=== PATIENT | female | born 1985 | race Caucasian/White ===

== ENCOUNTER 2016-06-24 13:18 | Emergency (ER) | payer OTHER ==
--- NOTE | 2016-06-24 16:09 | ED ORDER SUMMARY ---
..... Patient: KAYLYNN MUNIZ OrderSheet [facility] VisitID: [id number] [place] [address] 30y, F Registration Date/Time: 06/24/2016 ORDER SHEET Weight: 70.3 kg (stated) Allergies: [place] GENERAL ORDERS: CBC w Diff Urgent (14:06/24/2016 HBivens A.R.N.P.) (Ack 14:22 OHernandez) (14:59 OHernandez) BMP Urgent (14:06/24/2016 HBivens A.R.N.P.) (Ack 14:22 OHernandez) (14:59 OHernandez) Serum Qualitative Urgent (14:06/24/2016 HBivens A.R.N.P.) (Ack 14:22 OHernandez) (14:59 OHernandez) EKG - ER Stat (14:06/24/2016 HBivens A.R.N.P.) (Ack 14:21 OHernandez) (14:26 TBergley) Vitals - Orthostatic (14:06/24/2016 HBivens A.R.N.P.) (14:26 TBergley) MEDICATION ORDERS: Meclizine PO 50 mg (NOW) (14:06/24/2016 HBivens A.R.N.P.) (14:30 LWhalen R.N.) IV FLUIDS: IV NS : initial bolus 1000 mL (1000 mL/hr), then none - for X1 (NOW) (14:03 06/24/2016 HBivens A.R.N.P.) (14:29 LWhalen R.N.) Zofran IV 4 mg (NOW) (14:06/24/2016 HBivens A.R.N.P.) (14:29 LWhalen R.N.) IV Saline Lock (14:06/24/2016 HBivens A.R.N.P.) (14:30 LWhalen R.N.) ORDER SHEET NOTES: [Electronically signed by Edwin Montero R.N. (17:27 06/24/2016)] [Electronically signed by Yvonne Osborne (19:19 06/24/2016)] [Electronically locked/signed by Edwin Montero R.N. (17:27 06/24/2016)]
--- NOTE | 2016-06-24 16:09 | ED NURSING NOTES ---
Clinical Report - Nurses [facility] [address] [place] [address] 06/24/2016 13:20 Patient: KAYLYNN MUNIZ TRIAGE Triage time 13:22 Jun 24 2016. Acuity: LEVEL 3. Chief Complaint: DIZZINESS and NEAR-SYNCOPE. GUILHERME COMA SCORE: [place] Coma Scale: 15- eyes open spontaneously (4); best verbal response- oriented x 4 (5); best motor response- obeys commands (6). --13:30 Edwin Montero R.N. 13:22 06/24/16. BP: 97/55. HR: 88. RR: 18. O2 saturation: 100%. Temp: 98.2 F. Pain level now 9/10. --13:30 Edwin Montero R.N. Weight: 70.3 kg stated. Height/Length: 70 inches Per Patient. BMI: 22.2. --13:29 Edwin Montero R.N. Medications LaMICtal Oral. --13:25 Edwin Montero R.N. Xanax Oral. --13:25 Edwin Montero R.N. Abilify Oral. --13:25 Edwin Montero R.N. Allergies [place]. --13:25 Edwin Montero R.N. History Arrived by EMS, and from home. Historian: patient. Primary physician (Lamine Robin). This started just prior to arrival. ( Has had chest and abdominal pains for a month but states isn't really sick with any specific cold symptoms and today felt so dizzy she couldn't walk or get up out of bed. Pain generalized all over body.). She has had moderate nausea, trouble walking, a mild headache, vomiting and weakness. No ear pain, fainting episodes or tinnitus. PAST MEDICAL HX: Immunizations: up-to-date. Last normal menstrual period- 1 days ago. 2. Para 0. Abortions 2. ( Has bipolar is being followed by MD.). SOCIAL HX: Smoker- current status unknown (quit smoking yesterday). No alcohol use or drug use. No infectious disease exposure. SELF HARM ASSESSMENT: A self harm assessment was performed. The patient answered "yes" to the question "Have you recently felt down, depressed, or hopeless?" and "no" to the question "Do you have thoughts of harming or killing yourself?". FALL RISK ASSESSMENT: Fall risk assessment completed. No fall risk identified. NUTRITIONAL RISK ASSESSMENT: The nutritional risk assessment revealed no deficiencies. FUNCTIONAL ASSESSMENT: Functional assessment: no impairments noted. LEARNING NEEDS ASSESSMENT: The learning needs assessment revealed no barriers. ABUSE ASSESSMENT: Abuse assessment: (yes) The patient was asked "Do you feel safe in your home?". SKIN INTEGRITY ASSESSMENT: Skin integrity risk assessment completed. No skin integrity risk identified. --13:30 Edwin Montero R.N. PROBLEMS: Anxiety Reaction. --13:26 Edwin Montero R.N. ADDITIONAL SURGERIES: no known surgeries. Interventions ID and allergy band on patient. --13:30 Edwin Montero R.N. PHYSICAL ASSESSMENT To room via stretcher. GENERAL / NEURO / PSYCH: Oriented X 4. Appears in no acute distress. Alert. Speech within normal limits. HEENT: No facial asymmetry noted. Pupils equal, round and reactive to light. RESPIRATORY: Breath sounds within normal limits. Respirations not labored. CVS: Normal sinus rhythm noted. Capillary refill less than 2 seconds. GI / : Abdominal tenderness. ( Last BM this am and normal). SKIN: Skin is warm and dry. --13:30 Edwin Montero R.N. NURSING PROGRESS NOTES The initial plan of care for this patient includes an assessment with efforts to address the patient's anxiety; patient positioning and appropriate ambient lighting. Pulse oximeter and NIBP monitor placed on patient. Patient gowned. Head of bed elevated (45). Reassurance given. Call light placed in reach. Side rails up x 2. Bed placed in lowest position. Brakes of bed on. --13:31 Edwin Montero R.N. 14:04 06/24/2016 Site #1 started prior to arrival by EMS via IV in the left antecubital space with an 20g angiocath. Saline lock flushed with 10 mL saline. --14: Edwin Montero R.N. 14:06/24/16. EKG time: (1422 PM). EKG was performed by a tech and shown to the ED physician. --14: YajairaCarlos avendanoler 14:06/24/2016 Started bag #1 1000 mL IV Fluids IV NS (Saline); at 1000 mL/hr over 1 hour(s) via site #1 via dial-a-flow. Allergies verified and confirmed 5 rights. IV patency established. IV site checked: no pain, redness, or swelling. IV flushed thoroughly pre- and post-medication administration. --14: Edwin Montero R.N. 14:06/24/2016 Zofran (Ondansetron HCl) IVP 4 mg given over 2 minute(s) via site #1. Allergies verified and confirmed 5 rights. IV patency established. IV site checked: no pain, redness, or swelling. IV flushed thoroughly pre- and post-medication administration. --14: Edwin Montero R.N. 14:06/24/2016 Meclizine PO Tablets 50 mg given. Allergies verified, confirmed 5 rights and sedative warning given to the patient. --14: Edwin Montero R.N. 16:06/24/16. BP: 106/74. HR: 108. RR: 18. O2 saturation: 99%. Temp: 98.3 F. Pain level now 0/10. --16: Edwin Montero R.N. DISPOSITION / DISCHARGE Departure time: 16:Jun 24 2016. Condition at departure: improved. No learning barriers present. Discharge instructions provided and reviewed with the patient. Reviewed warnings. Reviewed medication(s). Treatments reviewed. Reviewed referrals. Patient verbalized understanding. Written instructions provided in [place]. The patient was discharged home and accompanied by head mva reactor operator. She left the Emergency Department ambulatory and via private vehicle. Family member driving. --16: Edwin Montero R.N. 16:20 06/24/16. BP: 106/74. HR: 108. RR: 18. O2 saturation: 99%. Temp: 98.3 F. Pain level now 0/10. 14:29 06/24/16. BP: 96/47 taken while standing. HR: 100. O2 saturation: 100%. 14:28 06/24/16. BP: 110/75 taken while sitting. HR: 80. O2 saturation: 100%. 14:27 06/24/16. BP: 101/59 taken while lying. HR: 80. O2 saturation: 100%. --16:21 Edwin Montero R.N. 17:26 06/24/2016 IV Fluids IV NS Discontinued: bag #1 infused. Total amount infused: 1000 mL. IV patency established. IV site checked: no pain, redness, or swelling. IV flushed thoroughly. --17:26 Edwin Montero R.N. Locked/Released at 06/24/2016 17:27 by Edwin Montero R.N.
--- NOTE | 2016-06-24 16:09 | ED CLINICAL REPORT ---
Clinical Report - Physicians/Mid Levels [facility] [address] [place] [address] 06/24/2016 13:20 Patient: KAYLYNN MUNIZ Time Seen: 13:55; initial patient contact, initial documentation, patient care assumed. Arrived- By ambulance. Historian- patient. HISTORY OF PRESENT ILLNESS Chief Complaint: DIZZINESS and NEAR-SYNCOPE. Severity described as severe at its maximum. When seen in the E.D., severity described as moderate. Modifying factors- worsened by turning head and changing position. Relieved by nothing. This started just prior to arrival and is still present. Described as sense of falling and feeling off balance, light-headed and weak all over. The patient has had nausea. She has had vomiting (x3 episodes after the dizziness started). No hearing loss, tinnitus or ear pain. Similar symptoms previously: None. Recent medical care: Not recently seen/assessed. REVIEW OF SYSTEMS The patient has had a moderate global headache. She has had weakness. No fainting episodes, head injury, chest pain, fever or difficulty breathing. No abdominal pain or diarrhea. All systems otherwise negative, except as recorded above. PAST HISTORY See nurses notes. ( PROBLEMS: Anxiety Reaction. --13:26 Edwin Montero R.N. ADDITIONAL SURGERIES: no known surgeries.). SOCIAL HISTORY Smoker - current status unknown (wearing patch, says she quit x2 days ago). No alcohol use or drug use. No recent travel. Is a local resident. FAMILY HISTORY Negative. ADDITIONAL NOTES The nursing notes have been reviewed with agreement regarding the chief complaint, HPI, ROS, PMH and patient medications and allergies. PHYSICAL EXAM Vital Signs: 06/24/2016 13:22 BP: 97/55. HR: 88. RR: 18. O2 saturation: 100%. Temp: 98.2 F. Have been reviewed as abnormal and appear to be correct. Hypotensive. Heart rate normal. Respiratory rate normal. Temperature normal. Oxygen saturation normal. Appearance: Alert. No acute distress. Eyes: Pupils equal, round and reactive to light. No nystagmus. Extraocular movements normal. ENT: Normal ENT inspection. TM's normal. Moist mucous membranes. Pharynx normal. Neck: Normal inspection. Neck supple. CVS: Normal heart rate and rhythm. Heart sounds normal. Pulses normal. Respiratory: No respiratory distress. Breath sounds normal. Abdomen: Soft and nontender. No organomegaly. Back: Normal inspection. Skin: Skin warm and dry. Normal skin color. No rash. Normal skin turgor. Extremities: Extremities exhibit normal ROM. No lower extremity edema. Neuro: Alert. Oriented X 3. Mood/affect normal. Speech normal. Cranial nerves normal (as tested). No cerebellar findings. No motor deficit. No sensory deficit. LABS, X-RAYS, AND EKG EKG: EKG time: (1422). No acute process. No acute ischemia. Normal EKG. Rate: 89. RBBB. Non-specific ST segment / T wave abnormalities in lead I, aVL and V1. Normal EKG. interpreted by Dr. Rodriguez and reviewed by me. The EKG appears to be a good tracing. Laboratory Tests: Serum Qualitative: (YIN: 06/24/2016 14:50) ( [facility] 06/24/2016 15:23) Final results Test Result Flag Units (Reference) , SERUM NEGATIVE CBC w Diff: (YIN: 06/24/2016 14:50) ( [facility] [place] 06/24/2016 15:06) Final results Test Result Flag Units (Reference) WHITE BLOOD COUNT 16.6 H K/uL (4.5-11.5) RED BLOOD COUNT 4.09 M/uL (4.00-5.20) HEMOGLOBIN 12.5 gm/dL (12.0-16.0) HEMATOCRIT 37.3 % (36.0-46.0) MEAN CELL VOLUME 91 fL (80-100) MEAN CORPUSCULAR HGB 31 pg (26-34) MEAN CORPUSCULAR HGB CONC 33 g/dL (31-37) RED CELL DISTRIBUTION WIDTH 12.3 % (11.6-14.8) PLATELET COUNT 225 K/uL (150-400) NEUTROPHIL % 93.0 H % (50-75) LYMPH % 2.5 L % (25-40) MONO % 4.4 % (3-14) EOSINOPHIL % 0 % (0-4) BASOPHIL % 0.1 % (0-2) BMP: (YIN: 06/24/2016 14:50) ( [facility] 06/24/2016 15:18) Final results Test Result Flag Units (Reference) GLUCOSE 124 H mg/dL (70-110) BUN 14 mg/dL (7-18) CREATININE 0.7 mg/dL (0.6-1.3) Estimated GFR >60 mL/min Estimated GFR- >60 mL/min Note: Persistent reduction over 3 months in eGFR<60 mL/min/1.73 m2 defines CKD. Patients with eGFR values>=60 mL/min/1.73 m2 may also have CKD if evidence ofpersistent proteinuria. Additional information may be foundat www.[email or web address].org. SODIUM 142 mmol/L (136-145) POTASSIUM 3.8 mmol/L (3.5-5.1) CHLORIDE 108 H mmol/L (98-107) CARBON DIOXIDE 26 mmol/L (21-32) CALCIUM 8.3 L mg/dL (8.5-10.1) . PROGRESS AND PROCEDURES Course of Care: 13:57 06/24/16. pt has mercedes for narcs of oxycodone and xanax, last rx 06/20 #60 oxy, gets these meds routinely approx exery month, see report for full details 15:56 06/24/16. just now finding out from nurse that pt had pos tilt on orthostatics by heart rate, and vs were checked after the 1l of ivf 1600. pt stated she felt better, said dizziness and nausea were basically gone. Patient counseled in person regarding the patient's stable condition, test results and diagnosis. 1600. Differential Diagnosis: I considered labyrinthitis, Meniere's disease, drug-related etiology, benign positional vertigo, near-syncope and anxiety as a possible cause of dizziness in this patient. This is a partial list of diagnoses considered. (hypoglycemia, aom, aoe). Above considerations are based on history, physical exam, laboratory data and EKG. Differential diagnosis was discussed with patient. Disposition: Discharged home in good and improved condition (16:09). Condition: good and stable. CLINICAL IMPRESSION Acute dizziness INSTRUCTIONS Warnings: GENERAL WARNINGS: Return or contact your physician immediately if your condition worsens or changes unexpectedly, if not improving as expected, or if other problems arise. SPECIFICALLY, return if you develop chest pain, neck pain, jaw pain, shoulder pain, arm pain, back pain, fluttering sensation in your chest, lightheadedness, fainting, numbness, weakness or extreme fatigue. Prescription Medications: Zofran 4 mg: Take 1 orally every six hours as needed for nausea/vomiting. Dispense ten (10). No refills. Substitution is permissible. Meclizine 25 mg: Take 1 tablet orally every 8 hours as needed for dizziness. Dispense thirty (30). No refills. Follow-up: Follow up with your doctor in about two days even if well. Call for an appointment. Summary of care provided to patient. Understanding of the discharge instructions verbalized by patient. (Electronically signed by Yvonne Osborne A.R.N.P. 06/24/2016 19:19)
--- NOTE | 2016-06-24 16:09 | ED NURSING NOTES ---
Clinical Report - Nurses [facility] [address] [place] [address] 06/24/2016 13:20 Patient: KAYLYNN MUNIZ TRIAGE Triage time 13:22 Jun 24 2016. Acuity: LEVEL 3. Chief Complaint: DIZZINESS and NEAR-SYNCOPE. GUILHERME COMA SCORE: [place] Coma Scale: 15- eyes open spontaneously (4); best verbal response- oriented x 4 (5); best motor response- obeys commands (6). --13:30 Edwin Montero R.N. 13:22 06/24/16. BP: 97/55. HR: 88. RR: 18. O2 saturation: 100%. Temp: 98.2 F. Pain level now 9/10. --13:30 Edwin Montero R.N. Weight: 70.3 kg stated. Height/Length: 70 inches Per Patient. BMI: 22.2. --13:29 Edwin Montero R.N. Medications LaMICtal Oral. --13:25 Edwin Montero R.N. Xanax Oral. --13:25 Edwin Montero R.N. Abilify Oral. --13:25 Edwin Montero R.N. Allergies [place]. --13:25 Edwin Montero R.N. History Arrived by EMS, and from home. Historian: patient. Primary physician (Lamine Robin). This started just prior to arrival. ( Has had chest and abdominal pains for a month but states isn't really sick with any specific cold symptoms and today felt so dizzy she couldn't walk or get up out of bed. Pain generalized all over body.). She has had moderate nausea, trouble walking, a mild headache, vomiting and weakness. No ear pain, fainting episodes or tinnitus. PAST MEDICAL HX: Immunizations: up-to-date. Last normal menstrual period- 1 days ago. 2. Para 0. Abortions 2. ( Has bipolar is being followed by MD.). SOCIAL HX: Smoker- current status unknown (quit smoking yesterday). No alcohol use or drug use. No infectious disease exposure. SELF HARM ASSESSMENT: A self harm assessment was performed. The patient answered "yes" to the question "Have you recently felt down, depressed, or hopeless?" and "no" to the question "Do you have thoughts of harming or killing yourself?". FALL RISK ASSESSMENT: Fall risk assessment completed. No fall risk identified. NUTRITIONAL RISK ASSESSMENT: The nutritional risk assessment revealed no deficiencies. FUNCTIONAL ASSESSMENT: Functional assessment: no impairments noted. LEARNING NEEDS ASSESSMENT: The learning needs assessment revealed no barriers. ABUSE ASSESSMENT: Abuse assessment: (yes) The patient was asked "Do you feel safe in your home?". SKIN INTEGRITY ASSESSMENT: Skin integrity risk assessment completed. No skin integrity risk identified. --13:30 Edwin Montero R.N. PROBLEMS: Anxiety Reaction. --13:26 Edwin Montero R.N. ADDITIONAL SURGERIES: no known surgeries. Interventions ID and allergy band on patient. --13:30 Edwin Montero R.N. PHYSICAL ASSESSMENT To room via stretcher. GENERAL / NEURO / PSYCH: Oriented X 4. Appears in no acute distress. Alert. Speech within normal limits. HEENT: No facial asymmetry noted. Pupils equal, round and reactive to light. RESPIRATORY: Breath sounds within normal limits. Respirations not labored. CVS: Normal sinus rhythm noted. Capillary refill less than 2 seconds. GI / : Abdominal tenderness. ( Last BM this am and normal). SKIN: Skin is warm and dry. --13:30 Edwin Montero R.N. NURSING PROGRESS NOTES The initial plan of care for this patient includes an assessment with efforts to address the patient's anxiety; patient positioning and appropriate ambient lighting. Pulse oximeter and NIBP monitor placed on patient. Patient gowned. Head of bed elevated (45). Reassurance given. Call light placed in reach. Side rails up x 2. Bed placed in lowest position. Brakes of bed on. --13:31 Edwin Montero R.N. 14:04 06/24/2016 Site #1 started prior to arrival by EMS via IV in the left antecubital space with an 20g angiocath. Saline lock flushed with 10 mL saline. --14: Edwin Montero R.N. 14:06/24/16. EKG time: (1422 PM). EKG was performed by a tech and shown to the ED physician. --14: YajairaCarlos avendanoler 14:06/24/2016 Started bag #1 1000 mL IV Fluids IV NS (Saline); at 1000 mL/hr over 1 hour(s) via site #1 via dial-a-flow. Allergies verified and confirmed 5 rights. IV patency established. IV site checked: no pain, redness, or swelling. IV flushed thoroughly pre- and post-medication administration. --14: Edwin Montero R.N. 14:06/24/2016 Zofran (Ondansetron HCl) IVP 4 mg given over 2 minute(s) via site #1. Allergies verified and confirmed 5 rights. IV patency established. IV site checked: no pain, redness, or swelling. IV flushed thoroughly pre- and post-medication administration. --14: Edwin Montero R.N. 14:06/24/2016 Meclizine PO Tablets 50 mg given. Allergies verified, confirmed 5 rights and sedative warning given to the patient. --14: Edwin Montero R.N. 16:06/24/16. BP: 106/74. HR: 108. RR: 18. O2 saturation: 99%. Temp: 98.3 F. Pain level now 0/10. --16: Edwin Montero R.N. DISPOSITION / DISCHARGE Departure time: 16:Jun 24 2016. Condition at departure: improved. No learning barriers present. Discharge instructions provided and reviewed with the patient. Reviewed warnings. Reviewed medication(s). Treatments reviewed. Reviewed referrals. Patient verbalized understanding. Written instructions provided in [place]. The patient was discharged home and accompanied by equipment cleaner and tester. She left the Emergency Department ambulatory and via private vehicle. Family member driving. --16: Edwin Montero R.N. 16:20 06/24/16. BP: 106/74. HR: 108. RR: 18. O2 saturation: 99%. Temp: 98.3 F. Pain level now 0/10. 14:29 06/24/16. BP: 96/47 taken while standing. HR: 100. O2 saturation: 100%. 14:28 06/24/16. BP: 110/75 taken while sitting. HR: 80. O2 saturation: 100%. 14:27 06/24/16. BP: 101/59 taken while lying. HR: 80. O2 saturation: 100%. --16:21 Edwin Montero R.N. 17:26 06/24/2016 IV Fluids IV NS Discontinued: bag #1 infused. Total amount infused: 1000 mL. IV patency established. IV site checked: no pain, redness, or swelling. IV flushed thoroughly. --17:26 Edwin Montero R.N. Locked/Released at 06/24/2016 17:27 by Edwin Montero R.N.
--- NOTE | 2016-06-24 16:09 | ED ORDER SUMMARY ---
..... Patient: KAYLYNN MUNIZ OrderSheet [facility] VisitID: [id number] [place] [address] 30y, F Registration Date/Time: 06/24/2016 ORDER SHEET Weight: 70.3 kg (stated) Allergies: [place] GENERAL ORDERS: CBC w Diff Urgent (14:06/24/2016 HBivens A.R.N.P.) (Ack 14:22 OHernandez) (14:59 OHernandez) BMP Urgent (14:06/24/2016 HBivens A.R.N.P.) (Ack 14:22 OHernandez) (14:59 OHernandez) Serum Qualitative Urgent (14:06/24/2016 HBivens A.R.N.P.) (Ack 14:22 OHernandez) (14:59 OHernandez) EKG - ER Stat (14:06/24/2016 HBivens A.R.N.P.) (Ack 14:21 OHernandez) (14:26 TBergley) Vitals - Orthostatic (14:06/24/2016 HBivens A.R.N.P.) (14:26 TBergley) MEDICATION ORDERS: Meclizine PO 50 mg (NOW) (14:06/24/2016 HBivens A.R.N.P.) (14:30 LWhalen R.N.) IV FLUIDS: IV NS : initial bolus 1000 mL (1000 mL/hr), then none - for X1 (NOW) (14:03 06/24/2016 HBivens A.R.N.P.) (14:29 LWhalen R.N.) Zofran IV 4 mg (NOW) (14:06/24/2016 HBivens A.R.N.P.) (14:29 LWhalen R.N.) IV Saline Lock (14:06/24/2016 HBivens A.R.N.P.) (14:30 LWhalen R.N.) ORDER SHEET NOTES: [Electronically signed by Edwin Montero R.N. (17:27 06/24/2016)] [Electronically signed by Yvonne Osborne (19:19 06/24/2016)] [Electronically locked/signed by Edwin Montero R.N. (17:27 06/24/2016)]
--- NOTE | 2016-06-24 19:19 | ED MED RECONCILIATION SUMMARY ---
Patient: KAYLYNN MUNIZ Medication Reconciliation Report [facility] VisitID: [id number] [place] [address] 30y, F Registration Date/Time: 06/24/2016 Weight: 70.3 kg Height/Length: 70 in. BMI: 22.2 ALLERGIES: [place] The patient's Home Medications are listed below: THE FOLLOWING MEDICATIONS NEED TO BE RECONCILED: Abilify Oral LaMICtal Oral Xanax Oral The source(s) of the original Home Medication information: Not obtained. The following Medications were given to the patient in the Emergency Department: IV NS IV Fluids bolus 0, then 1000 mL/hr, administered: 06/24/2016 2:29:00 PM Zofran [IVP] IVP 4 mg, administered: 06/24/2016 2:29:00 PM Meclizine [PO] PO 50 mg, administered: 06/24/2016 2:30:00 PM The following Medications were prescribed to the patient: Zofran 4 mg: Take 1 orally every six hours as needed for nausea/vomiting. Dispense ten (10). No refills. Substitution is permissible. -- Yvonne Osborne A.R.N.P. Meclizine 25 mg: Take 1 tablet orally every 8 hours as needed for dizziness. Dispense thirty (30). No refills. -- Yvonne Osborne A.R.N.P.
--- NOTE | 2016-06-24 19:19 | ED MED RECONCILIATION SUMMARY ---
Patient: KAYLYNN MUNIZ Medication Reconciliation Report [facility] VisitID: [id number] [place] [address] 30y, F Registration Date/Time: 06/24/2016 Weight: 70.3 kg Height/Length: 70 in. BMI: 22.2 ALLERGIES: [place] The patient's Home Medications are listed below: THE FOLLOWING MEDICATIONS NEED TO BE RECONCILED: Abilify Oral LaMICtal Oral Xanax Oral The source(s) of the original Home Medication information: Not obtained. The following Medications were given to the patient in the Emergency Department: IV NS IV Fluids bolus 0, then 1000 mL/hr, administered: 06/24/2016 2:29:00 PM Zofran [IVP] IVP 4 mg, administered: 06/24/2016 2:29:00 PM Meclizine [PO] PO 50 mg, administered: 06/24/2016 2:30:00 PM The following Medications were prescribed to the patient: Zofran 4 mg: Take 1 orally every six hours as needed for nausea/vomiting. Dispense ten (10). No refills. Substitution is permissible. -- Yvonne Osborne A.R.N.P. Meclizine 25 mg: Take 1 tablet orally every 8 hours as needed for dizziness. Dispense thirty (30). No refills. -- Yvonne Osborne A.R.N.P.
--- NOTE | 2016-06-24 19:19 | ED MAR SUMMARY ---
..... Medication Administration Record [facility] [address] [place] [address] Patient: KAYLYNN MUNIZ Visit ID: [id number] 30y, F Weight: 70.3 kg Height/Length: 70 in BMI: 22.2 ALLERGIES: [place] Start 14:29 06/24/2016 Edwin Montero R.N., Stop 17:26 06/24/2016 Edwin Montero R.N. Medication Administered: IV NS (SALINE), Dose: IV Fluids over 1 hour(s), Rate: 1000 mL/hr, Dispensed: 1000 mL bag, Site: #1 left AC. Medication Ordered: IV NS : initial bolus 1000 mL (1000 mL/hr), then none - for X1 (NOW). Given 14:06/24/2016 Edwin Montero R.N. Medication Administered: ZOFRAN [IVP] (ONDANSETRON HCL), Dose: 4 mg IVP over 2 minute(s), Site: #1 left AC. Medication Ordered: Zofran IV 4 mg (NOW). Given 14:06/24/2016 Edwin Montero R.N. Medication Administered: MECLIZINE [PO], Dose: 50 mg Tablets PO. Medication Ordered: Meclizine PO 50 mg (NOW).
--- NOTE | 2016-06-24 19:19 | ED DISCHARGE INSTRUCTIONS ---
Patient: KAYLYNN MUNIZ General Instructions [facility] VisitID: [id number] [place] [address] 30y, F Registration Date/Time: 06/24/2016 Acute dizziness INSTRUCTIONS Warnings: GENERAL WARNINGS: Return or contact your physician immediately if your condition worsens or changes unexpectedly, if not improving as expected, or if other problems arise. SPECIFICALLY, return if you develop chest pain, neck pain, jaw pain, shoulder pain, arm pain, back pain, fluttering sensation in your chest, lightheadedness, fainting, numbness, weakness or extreme fatigue. Prescription Medications: Zofran 4 mg: Take 1 orally every six hours as needed for nausea/vomiting. Dispense ten (10). No refills. Substitution is permissible. Meclizine 25 mg: Take 1 tablet orally every 8 hours as needed for dizziness. Dispense thirty (30). No refills. Follow-up: Follow up with your doctor in about two days even if well. Call for an appointment. Summary of care provided to patient. Understanding of the discharge instructions verbalized by patient. ADDITIONAL INFORMATION Dizziness [Uncertain Cause] Dizziness is a common symptom sometimes described as "lightheadedness" or feeling like you are going to faint. If it lasts for only a few seconds and is related to changes in position (such as getting up after lying or sitting for a long time), it is usually not a sign of anything serious. Dizziness that lasts for minutes to hours, or comes on for no apparent reason, may be a sign of a more serious problem (such as dehydration, a medicine reaction, disease of the heart or brain). Today's exam did not show an exact cause for your dizzy spell . Sometimes additional tests are required before a cause can be found. Therefore, it is important to follow up with your doctor if your symptoms continue. Home Care: 1) If a dizzy spell occurs and lasts more than a few seconds, lie down until it passes. If you are lying down, then you cannot hurt yourself by falling if you do faint. 2) Do not drive or operate dangerous equipment until the dizzy spells have stopped for at least 48 hours. 3) If dizzy spells occur with sudden standing, this may be a sign of mild dehydration. Drink extra fluids over the next few days. 4) If you recently started a new medicine or if you had the dose of a current medicine increased (especially blood pressure medicine), talk with the prescribing doctor about your symptoms. Dose adjustments may be needed. Follow Up with your doctor for further evaluation within the next seven days, if your symptoms continue. Get Prompt Medical Attention if any of the following occur: -- Worsening of your symptoms -- Fainting, headache or seizure -- Repeated vomiting -- Feeling like you or the room is spinning -- Chest, arm, neck, back or jaw pain -- Palpitations (the sense that your heart is fluttering or beating fast or hard) -- Shortness of breath -- Blood in vomit or stool (black or red color) -- Weakness of an arm or leg or one side of the face -- Difficulty with speech or vision Benign Positional Vertigo The inner ear is located behind the middle ear. It is a part of the balance center of the body. It contains small calcium particles within fluid filled canals (semi-circular canals). These particles can move out of position as a result of aging, head trauma or disease of the inner ear. Once that happens, movement of the head into certain positions may cause the particles to stimulate the inner ear and create the feeling of vertigo. Vertigo is a false feeling of motion (as if you or the room is spinning). A vertigo attack may cause sudden nausea, vomiting and heavy sweating. Severe vertigo causes a loss of balance and may result in falling. During an attack of vertigo, head movement and body position changes will worsen symptoms. An episode of vertigo may last seconds, minutes or hours. Once you are over the first episode of vertigo, it may never return. Sometimes symptoms recur off and on over several weeks or longer. Home Care: If symptoms are severe, rest quietly in bed. Change positions slowly. There is usually one position that will feel best, such as lying on one side or lying on your back with your head slightly raised on pillows. Do not drive or work with dangerous machinery for one week after symptoms disappear, in case of a sudden return of symptoms. Take medicine as prescribed to relieve your symptoms. Unless another medicine was prescribed for nausea, vomiting and vertigo, you may use [id number] motion sickness pills, such as meclizine (Bonine, Bonamine, Antivert) or dimenhydrinate (Dramamine). Follow Up with your doctor or as directed by our staff. Report any persistent ringing in the ear or hearing loss to your doctor. [NOTE: If you had a CT or MRI scan, it will be reviewed by a specialist. You will be notified of any new findings that may affect your care.] Get Prompt Medical Attention if any of the following occur: Worsening of vertigo not controlled by the medicine prescribed Repeated vomiting not controlled by the medicine prescribed Increased weakness or fainting Severe headache or unusual drowsiness or confusion Weakness of an arm or leg or one side of the face Difficulty with speech or vision Seizure Ondansetron Oral disintegrating tablet What is this medicine? ONDANSETRON (on JUS se sanjay) is used to treat nausea and vomiting caused by chemotherapy. It is also used to prevent or treat nausea and vomiting after surgery. How should I use this medicine? These tablets are made to dissolve in the mouth. Do not try to push the tablet through the foil backing. With dry hands, peel away the foil backing and gently remove the tablet. Place the tablet in the mouth and allow it to dissolve, then swallow. While you may take these tablets with water, it is not necessary to do so. Talk to your heel cementer machine regarding the use of this medicine in children. Special care may be needed. What side effects may I notice from receiving this medicine? Side effects that you should report to your doctor or health managed care manager as soon as possible: allergic reactions like skin rash, itching or hives, swelling of the face, lips, or tongue breathing problems dizziness fast or irregular heartbeat feeling faint or lightheaded, falls fever and chills swelling of the hands and feet tightness in the chest Side effects that usually do not require medical attention (report to your doctor or health managed care manager if they continue or are bothersome): constipation or diarrhea headache What may interact with this medicine? Do not take this medicine with any of the following medications: -apomorphine -cisapride -dofetilide -dronedarone -pimozide -thioridazine -ziprasidone This medicine may also interact with the following medications: -carbamazepine -phenytoin -rifampicin -tramadol -other medicines that prolong the QT interval (cause an abnormal heart rhythm) What if I miss a dose? If you miss a dose, take it as soon as you can. If it is almost time for your next dose, take only that dose. Do not take double or extra doses. Where should I keep my medicine? Keep out of the reach of children. Store between 2 and 30 degrees C (36 and 86 degrees F). Throw away any unused medicine after the expiration date. What should I tell my health care provider before I take this medicine? They need to know if you have any of these conditions: heart disease history of irregular heartbeat liver disease low levels of magnesium or potassium in the blood an unusual or allergic reaction to ondansetron, granisetron, other medicines, foods, dyes, or preservatives or trying to get breast-feeding What should I watch for while using this medicine? Check with your doctor or health managed care manager as soon as you can if you have any sign of an allergic reaction. Meclizine Hydrochloride Oral tablet What is this medicine? MECLIZINE (MIRI oliveros) is an antihistamine. It is used to prevent nausea, vomiting, or dizziness caused by motion sickness. It is also used to prevent and treat vertigo (extreme dizziness or a feeling that you or your surroundings are tilting or spinning around). How should I use this medicine? Take this medicine by mouth with a glass of water. Follow the directions on the prescription label. If you are using this medicine to prevent motion sickness, take the dose at least 1 hour before travel. If it upsets your stomach, take it with food or milk. Take your doses at regular intervals. Do not take your medicine more often than directed. Talk to your heel cementer machine regarding the use of this medicine in children. Special care may be needed. What side effects may I notice from receiving this medicine? Side effects that you should report to your doctor or health managed care manager as soon as possible: fainting spells fast or irregular heartbeat Side effects that usually do not require medical attention (report to your doctor or health managed care manager if they continue or are bothersome): constipation difficulty passing urine difficulty sleeping headache stomach upset What may interact with this medicine? barbiturate medicines for inducing sleep or treating seizures digoxin medicines for anxiety or sleeping problems, like alprazolam, diazepam or temazepam medicines for hay fever and other allergies medicines for mental depression medicines for movement abnormalities as in Parkinson's disease, or for stomach problems medicines for pain medicines that relax muscles What if I miss a dose? If you miss a dose, take it as soon as you can. If it is almost time for your next dose, take only that dose. Do not take double or extra doses. Where should I keep my medicine? Keep out of the reach of children. Store at room temperature between 15 and 30 degrees C (59 and 86 degrees F). Keep container tightly closed. Throw away any unused medicine after the expiration date. What should I tell my health care provider before I take this medicine? They need to know if you have any of these conditions: asthma glaucoma prostate trouble stomach problems urinary problems an unusual or allergic reaction to meclizine, other medicines, foods, dyes, or preservatives or trying to get breast-feeding What should I watch for while using this medicine? If you are taking this medicine on a regular schedule, visit your doctor or health managed care manager for regular checks on your progress. You may get dizzy, drowsy or have blurred vision. Do not drive, use machinery, or do anything that needs mental alertness until you know how this medicine affects you. Do not stand or sit up quickly, especially if you are an older patient. This reduces the risk of dizzy or fainting spells. Alcohol can increase possible dizziness. Avoid alcoholic drinks. Your mouth may get dry. Chewing sugarless gum or sucking hard candy, and drinking plenty of water may help. Contact your doctor if the problem does not go away or is severe. This medicine may cause dry eyes and blurred vision. If you wear contact lenses you may feel some discomfort. Lubricating drops may help. See your eye doctor if the problem does not go away or is severe. You have been given the following additional information: Dizziness, Unk Cause Benign Positional Vertigo Ondansetron Oral disintegrating tablet Meclizine Hydrochloride Oral tablet (Electronically signed by Yvonne Osborne A.R.N.P. 06/24/2016 19:19)
--- NOTE | 2016-06-24 19:19 | ED MAR SUMMARY ---
..... Medication Administration Record [facility] [address] [place] [address] Patient: KAYLYNN MUNIZ Visit ID: [id number] 30y, F Weight: 70.3 kg Height/Length: 70 in BMI: 22.2 ALLERGIES: [place] Start 14:29 06/24/2016 Edwin Montero R.N., Stop 17:26 06/24/2016 Edwin Montero R.N. Medication Administered: IV NS (SALINE), Dose: IV Fluids over 1 hour(s), Rate: 1000 mL/hr, Dispensed: 1000 mL bag, Site: #1 left AC. Medication Ordered: IV NS : initial bolus 1000 mL (1000 mL/hr), then none - for X1 (NOW). Given 14:06/24/2016 Edwin Montero R.N. Medication Administered: ZOFRAN [IVP] (ONDANSETRON HCL), Dose: 4 mg IVP over 2 minute(s), Site: #1 left AC. Medication Ordered: Zofran IV 4 mg (NOW). Given 14:06/24/2016 Edwin Montero R.N. Medication Administered: MECLIZINE [PO], Dose: 50 mg Tablets PO. Medication Ordered: Meclizine PO 50 mg (NOW).
== END 2016-06-24 16:21 | disposition home or self-care (01) ==
LOC: ED SRH 13:18
DX: R42 Dizziness and giddiness (principal); R55 Syncope and collapse; Z88.8 Allergy status to other drugs, medicaments and biological substances
CPT/HCPCS: 90047; 95059; 98428